=== PATIENT | male | born 1985 ===

== ENCOUNTER → 2019-02-04 21:12 | Outpatient (ROUT) | payer OTHER, SELFPAY ==
[2019-02-04 21:15] LABS: Bacteria Urine None Seen; RBC Urine None Seen (0-5/HPF); WBC Urine None Seen (0-5/HPF)
[2019-02-04 21:56] LABS: Alanine Aminotransferase 29 IU/L (21-72); Albumin Globulin Ratio 1.6 (1.0-2.8); Alkaline Phosphatase 68 U/L (38-126); Aspartate Aminotransferase 25 IU/L (17-59); Bilirubin Total 0.8 mg/dL (0.2-1.3); Blood Urea Nitrogen 17 mg/dL (9-20); Calcium 10.1 mg/dL (8.4-10.2); Carbon Dioxide 28 mmol/L (22-32); Chloride 100 mmol/L (98-107); Cholesterol 193 mg/dL (140-199); Estimated Glomerular Filt Rate > 60.0 mL/min (>60); Globulin 3.2 g/dL (1.7-4.1); Glucose 89 mg/dL (70-100); HDL Cholesterol 45 mg/dL (40-60); HEMOLYSIS 36 (0-50); LDL Cholesterol Calculated 116 mg/dL (<100); Potassium 4.9 mmol/L (3.4-5.1); Sodium 140 mmol/L (137-145); Total Protein 8.2 g/dL (6.3-8.2); Triglycerides 160 mg/dL (35-150)
[2019-02-04 21:57] LABS: Hematocrit 50.8 % (41-53); Hemoglobin 16.9 g/dL (13.5-17.5); Mean Corpuscular HGB Conc 33.2 % (30-36); Mean Corpuscular Volume 78.2 fL (80-100); Platelet Count 127 X10^3/uL (150-400); Red Cell Distribution Width 13.6 % (11.6-14.8); White Blood Cell Count 6.5 X10^3/uL (4.5-11.0)
[2019-02-04 22:03] LABS: HEMOLYSIS 32 (0-50); Iron 108 ug/dL (49-181)
[2019-02-04 22:06] LABS: Appearance Urine UA CLEAR; Bilirubin Urine UA NEGATIVE (NEGATIVE); Color Urine UA YELLOW; Glucose Urine UA NEGATIVE (Negative); Ketones Urine UA NEGATIVE (NEGATIVE); Leukocyte Esterase Urine UA NEGATIVE (NEGATIVE); Nitrite Urine UA NEGATIVE (Negative); Occult Blood Urine UA NEGATIVE (Negative); Protein Urine UA NEGATIVE (Negative); Urobilinogen Urine UA 0.2 E.U./dL (0.2)
[2019-02-04 22:16] LABS: Percent Iron Saturation 25 % (20-50); Total Iron Binding Capacity 427 ug/dL (261-462); Transferrin 329 mg/dL (206-381)
[2019-02-04 22:23] LABS: Culture Indicated Urine Cult Not Indicated; Free T3, Triiodothyronine Free 4.11 pg/mL (2.77-5.27); Free T4, Direct Thyroxine 1.28 ng/dL (0.78-2.19); Triiodothryronine T3 Uptake 34.2 % (23.5-40.5)
[2019-02-04 22:37] LABS: Thyroid Stimulating Hormone 1.85 uIU/mL (0.47-4.68)
[2019-02-05 07:11] LABS: Add Manual Diff / Slide Review YES
[2019-02-05 07:14] LABS: Platelet Morphology Comment 1+ Giant PLT; RBC Morphology Normal Morphology
[2019-02-06 16:06] LABS: Triiodothyronine T3 Total 87 ng/dL (76-181)
[2019-02-07 14:18] LABS: PSA, Total 0.6 ng/mL (< 4.1)
[2019-02-07 15:27] LABS: Anti Thyroglobulin Antibody < 1 IU/mL (< 2); Thyroid Peroxidase Antibodies 4 IU/mL (< 9)
== END ==
PROVIDERS: Visit Provider Family Medicine
DX: Z00.00 Encounter for general adult medical examination without abnormal findings (principal)
CPT/HCPCS: 36415; 80053; 80061; 81001; 83540; 83550; 84153; 84154; 84439; 84443; 84479; 84480; 84481; 85025; 86376; 86800